=== PATIENT | male | born 1970 | race Caucasian/White ===

== ENCOUNTER 2024-10-09 19:48 | Inpatient (IN) | payer OTHER ==
[2024-10-09] MEDS ORDERED: Ondansetron PF 4 MG/2 ML Vial ONE (21:01)
[2024-10-09] MEDS ORDERED: Ketorolac Tromethamine 30 MG (1 mL) VIAL ONE (21:02)
[2024-10-09 22:34] LABS: #Basophils 0.07 10x3/uL (0.0-0.2); #Eosinophils 0.17 10x3/uL (0.0-0.5); #Monocytes 1.15 10x3/uL (0.0-1.1); #Neutrophils 5.98 10x3/uL (1.5-8.4); %Basophils 0.7 % (0.0-2.0); %Eosinophils 1.6 % (0.0-6.0); %Lymphocytes 28.3 % (18.0-47.0); %Monocytes 11.1 % (0.0-10.0); %Neutrophils 57.9 % (40.0-75.0); Hematocrit 27.5 % (38.8-50.0); Hemoglobin 9.2 g/dL (13.5-17.5); Mean Corpuscular HGB CONC 33.5 g/dL (32.0-36.0); Mean Corpuscular Hemoglobin 36.5 pg (27.0-33.0); Mean Corpuscular Volume 109.1 fL (81.2-95.1); Mean Platelet Volume 9.4 fL (7.4-10.4); Platelet Count 128 10x3/uL (150-450); RBC Distribution Width 16.5 % (11.5-14.5); Red Blood Cell (RBC) Count 2.52 10x6/uL (4.32-5.72); White Blood Cell (WBC) Count 10.3 10x3/uL (3.5-10.5)
[2024-10-09 22:43] LABS: ALT (SGPT) 39 U/L (8-55); AST (SGOT) 58 U/L (5-34); Albumin 1.8 g/dL (3.5-5.0); Alkaline Phosphatase 377 U/L (40-110); Anion Gap 18 mmol/L (10-20); BUN (Urea Nitrogen) 17 mg/dL (8.4-25.7); Bilirubin, Total 1.3 mg/dL (0.2-1.2); Calc. Creatinine Clearance 0 mL/min (70-130); Calcium 7.8 mg/dL (7.8-10.44); Carbon Dioxide 21 mmol/L (22-29); Chloride 105 mmol/L (98-107); Estimated GFR 44; Globulin 4.9 g/dL (2.4-3.5); Glucose 88 mg/dL (70-105); Protein, Total 6.7 g/dL (6.0-8.3); Sodium 141 mmol/L (136-145)
[2024-10-09 22:50] LABS: Critical Call Chemistry NUR.SW17 AT 2250; Potassium 2.6 mmol/L (3.5-5.1)
[2024-10-09] MEDS ORDERED: Potassium Chloride 20 MEQ TAB ONE (23:31)
[2024-10-09] MEDS ORDERED: Potassium Chloride 20 MEQ (100 mL) BAG ONE (23:32)
[2024-10-10 00:59] LABS: Magnesium 1.6 mg/dL (1.6-2.6)
[2024-10-10 02:52] LABS: Anion Gap 18 mmol/L (10-20); BUN (Urea Nitrogen) 17 mg/dL (8.4-25.7); Calc. Creatinine Clearance 0 mL/min (70-130); Calcium 7.7 mg/dL (7.8-10.44); Carbon Dioxide 17 mmol/L (22-29); Chloride 108 mmol/L (98-107); Estimated GFR 47; Glucose 113 mg/dL (70-105); Potassium 2.7 mmol/L (3.5-5.1); Sodium 140 mmol/L (136-145)
[2024-10-10] MEDS ORDERED: Acetaminophen 325 MG TAB PO PRN (03:29)
[2024-10-10] MEDS ORDERED: Ondansetron ODT 4 MG TAB PO PRN (03:29)
[2024-10-10] MEDS ORDERED: Dextrose 5% in Water 1,000 ML IV PRN (03:29)
[2024-10-10] MEDS ORDERED: Ondansetron PF 4 MG/2 ML Vial IVP PRN (03:29)
[2024-10-10] MEDS ORDERED: Dextrose 50% Abboject 50 ML SYRINGE SLOW IVP PRN (03:29)
[2024-10-10] MEDS ORDERED: Glucagon 1 MG/ML KIT IM PRN (03:29)
[2024-10-10] MEDS ORDERED: traMADol HCl 50 MG TAB PO PRN ×2 (03:29)
[2024-10-10] MEDS ORDERED: Acetaminophen 650 MG Suppository PR PRN (03:29)
[2024-10-10] MEDS ORDERED: Insulin Lispro 100 UNIT/ML 10 ML VIAL SC PRN (03:29)
[2024-10-10] MEDS ORDERED: Lorazepam 2 MG/ML VIAL IM PRN (03:46)
[2024-10-10] MEDS ORDERED: Lorazepam 1 MG TAB PO PRN (03:46)
[2024-10-10] MEDS ORDERED: Electrolyte Replacement Protocol 1 EACH FS PRN (04:00)
[2024-10-10] MEDS: Nystatin Cream 15 GM TUBE TOP SCH (04:01)
[2024-10-10] MEDS: Magnesium Oxide 400 MG TAB PO SCH (04:01)
[2024-10-10] MEDS: Potassium Chloride 20 MEQ in Premix 1 BAG IVPB SCH (04:05)
[2024-10-10] MEDS: Multivit, Therapeutic 1 TAB PO SCH (04:13)
[2024-10-10 04:34] LABS: Magnesium 1.5 mg/dL (1.6-2.6)
[2024-10-10 04:35] VITALS: BMI 51.5
[2024-10-10 04:49] LABS: #Basophils 0.05 10x3/uL (0.0-0.2); #Eosinophils 0.13 10x3/uL (0.0-0.5); #Monocytes 0.96 10x3/uL (0.0-1.1); #Neutrophils 4.69 10x3/uL (1.5-8.4); %Basophils 0.6 % (0.0-2.0); %Eosinophils 1.6 % (0.0-6.0); %Lymphocytes 26.6 % (18.0-47.0); %Neutrophils 58.7 % (40.0-75.0); Hematocrit 25.1 % (38.8-50.0); Hemoglobin 8.1 g/dL (13.5-17.5); Mean Corpuscular HGB CONC 32.3 g/dL (32.0-36.0); Mean Corpuscular Hemoglobin 35.4 pg (27.0-33.0); Mean Corpuscular Volume 109.6 fL (81.2-95.1); Mean Platelet Volume 9.6 fL (7.4-10.4); Platelet Count 125 10x3/uL (150-450); RBC Distribution Width 16.7 % (11.5-14.5); Red Blood Cell (RBC) Count 2.29 10x6/uL (4.32-5.72)
[2024-10-10 05:30] LABS: Anion Gap 19 mmol/L (10-20); BUN (Urea Nitrogen) 17 mg/dL (8.4-25.7); Calc. Creatinine Clearance 118 mL/min (70-130); Calcium 7.8 mg/dL (7.8-10.44); Carbon Dioxide 16 mmol/L (22-29); Chloride 109 mmol/L (98-107); Estimated GFR 47; Glucose 123 mg/dL (70-105); Potassium 2.9 mmol/L (3.5-5.1); Sodium 141 mmol/L (136-145)
[2024-10-10 05:31] LABS: Anion Gap 15 mmol/L (10-20); BUN (Urea Nitrogen) 17 mg/dL (8.4-25.7); Calc. Creatinine Clearance 122 mL/min (70-130); Calcium 7.7 mg/dL (7.8-10.44); Carbon Dioxide 20 mmol/L (22-29); Chloride 108 mmol/L (98-107); Estimated GFR 48; Glucose 129 mg/dL (70-105); Potassium 2.9 mmol/L (3.5-5.1); Sodium 140 mmol/L (136-145)
[2024-10-10] MEDS: Thiamine HCl 200 MG/2 ML VIAL SLOW IVP SCH (05:55)
[2024-10-10] MEDS ORDERED: Potassium Chloride 20 MEQ (100 mL) BAG ONE (05:56)
[2024-10-10] MEDS ORDERED: Thiamine HCl 200 MG/2 ML VIAL ONE (05:56)
[2024-10-10] MEDS ORDERED: Magnesium 2 GM/50 ML BAG (IN WATER) ONE (05:56)
[2024-10-10] MEDS: Magnesium 2 GM/50 ML(in water) 2 GM in Premix 1 BAG IVPB SCH (06:16)
[2024-10-10] MEDS: Folic Acid 1 MG TAB PO SCH (10:00)
[2024-10-10] MEDS: Potassium Chloride 20 MEQ TAB PO SCH ×3 (10:00→20:11)
[2024-10-10] MEDS ORDERED: Folic Acid 1 MG TAB ONE (10:09)
[2024-10-10] MEDS ORDERED: Potassium Chloride 20 MEQ TAB ONE (10:09)
[2024-10-10] MEDS ORDERED: Electrolyte Replacement Protocol 1 EACH FS SCH (11:15)
[2024-10-10 12:59] LABS: Hemoglobin A1c 5.3 % (4.0-6.0)
[2024-10-10] MEDS: Heparin 5,000 UNITS/ML VIAL SC SCH (16:21)
[2024-10-11] MEDS ORDERED: Lorazepam 1 MG TAB PO PRN (03:46)
[2024-10-11 04:49] LABS: Anion Gap 13 mmol/L (10-20); BUN (Urea Nitrogen) 19 mg/dL (8.4-25.7); Calc. Creatinine Clearance 124 mL/min (70-130); Calcium 7.9 mg/dL (7.8-10.44); Carbon Dioxide 20 mmol/L (22-29); Chloride 108 mmol/L (98-107); Estimated GFR 50; Glucose 125 mg/dL (70-105); Magnesium 1.6 mg/dL (1.6-2.6); Phosphorus 1.9 mg/dL (2.3-4.7); Potassium 3.6 mmol/L (3.5-5.1); Sodium 137 mmol/L (136-145)
[2024-10-11] MEDS ORDERED: MAGNESIUM OXIDE PO SCH (09:00)
[2024-10-11] MEDS: Alogliptin 25 MG TAB PO SCH (09:35)
[2024-10-11] MEDS: Pantoprazole DR 40 MG TAB PO SCH (09:35)
[2024-10-11] MEDS: metFORMIN 500 MG TAB PO SCH (09:35)
[2024-10-11] MEDS: PHOS-NAK 1 PKT PACK PO SCH (09:36)
[2024-10-11] MEDS: Tamsulosin HCl 0.4 MG CAP PO SCH (09:36)
[2024-10-11] MEDS: Multivit, Therapeutic 1 TAB PO SCH (09:36)
[2024-10-11] MEDS: Aspirin 81 mg Enteric Coated Tablet PO SCH (09:36)
[2024-10-11] MEDS: Magnesium 2 GM/50 ML(in water) 2 GM in Premix 1 BAG IVPB SCH (09:36)
[2024-10-11] MEDS: Nystatin Powder 15 GM BOT TOP SCH (10:28)
[2024-10-11 12:39] VITALS: BMI 51.5
[2024-10-12] MEDS ORDERED: Lorazepam 1 MG TAB PO PRN (03:46)
[2024-10-12 04:28] LABS: Magnesium 1.9 mg/dL (1.6-2.6)
[2024-10-12 04:45] LABS: Phosphorus 2.8 mg/dL (2.3-4.7)
[2024-10-12 07:59] VITALS: TEMP 98.3
[2024-10-12 08:31] LABS: Anion Gap 11 mmol/L (10-20); BUN (Urea Nitrogen) 15 mg/dL (8.4-25.7); Calc. Creatinine Clearance 138 mL/min (70-130); Calcium 8.1 mg/dL (7.8-10.44); Carbon Dioxide 22 mmol/L (22-29); Chloride 108 mmol/L (98-107); Estimated GFR 56; Glucose 113 mg/dL (70-105); Sodium 137 mmol/L (136-145)
[2024-10-12] MEDS: Magnesium 2 GM/50 ML(in water) 2 GM in Premix 1 BAG IVPB SCH (08:51)
[2024-10-12 14:28] VITALS: BP 126/73
[2024-10-13] MEDS ORDERED: Lorazepam 0.5 MG TAB PO PRN (03:46)
[2024-10-13] MEDS ORDERED: Thiamine 100 MG TAB PO SCH (08:00)
== END 2024-10-12 17:36 | disposition home or self-care (01) | DRG 641 ==
LOC: CSHERS 19:48 → CSHERHOLD 10-10 03:19 → OBSVTOIN 10-10 03:20 → CSHTELE 10-10 14:34
PROVIDERS: ADMIT Family Medicine; ATTEND Family Medicine
DX: E87.6 Hypokalemia (principal); I50.32 Chronic diastolic (congestive) heart failure; N17.9 Acute kidney failure, unspecified; Z68.43 Body mass index [BMI] 50.0-59.9, adult; E83.42 Hypomagnesemia; L89.152 Pressure ulcer of sacral region, stage 2; L89.892 Pressure ulcer of other site, stage 2; L30.4 Erythema intertrigo; E78.5 Hyperlipidemia, unspecified; E11.9 Type 2 diabetes mellitus without complications; I11.0 Hypertensive heart disease with heart failure; K74.60 Unspecified cirrhosis of liver; E66.01 Morbid (severe) obesity due to excess calories; F10.10 Alcohol abuse, uncomplicated; Z74.01 Bed confinement status; Z88.5 Allergy status to narcotic agent; Z91.148 Patient's other noncompliance with medication regimen for other reason; Z79.4 Long term (current) use of insulin
CPT/HCPCS: 36415; 36416; 80048; 80053; 83036; 83735; 84100; 84443; 85025; 86140; 93306; 94760; 94762; 96365; 96366; 96375; 97139; J1644; J1885; J2405; J3411; J3475; J3480